=== PATIENT | male | born 1980 | race Hispanic/Latino ===

== ENCOUNTER 2025-01-27 10:57 | Emergency (ER) | payer OTHER ==
[~2025-01-27] VITALS: Ht 177.8 cm; Wt 85.7 kg
[2025-01-27 11:20] VITALS: PULSE 92; RESP 14; TEMP 97.6; O2SAT 99
[2025-01-27] MEDS ORDERED: AMLODIPINE BESY10 MG PO (11:35)
[2025-01-27] MEDS ORDERED: LISINOPRIL40 MG PO (11:35)
== END 2025-01-27 11:36 | disposition home or self-care (01) ==
LOC: ER 11:25
DX: I10 Essential (primary) hypertension (principal); Z76.0 Encounter for issue of repeat prescription; F17.210 Nicotine dependence, cigarettes, uncomplicated
CPT/HCPCS: 99282